=== PATIENT | male | born 1960 | race Hispanic/Latino ===

== ENCOUNTER 2019-02-11 20:36 | Emergency (ER) | payer MEDICAID ==
[2019-02-11 20:44] VITALS: BP 132/100
--- NOTE | 2019-02-11 20:46 | Event Note ---
ED Screening Note Date of service: 02/11/19 Time: 20:43 ED Screening Note: This is a 58 y.o. M. that presents to the ER with an abscess on right shoulder blade x 1 week. Reports drainage and pain. This initial assessment/diagnostic orders/clinical plan/treatment(s) is/are subject to change based on patients health status, clinical progression and re- assessment by fellow clinical providers in the ED. Further treatment and workup at subsequent clinical providers discretion. Patient/guardian urged not to elope from the ED as their condition may be serious if not clinically assessed and managed. Initial orders include:
--- NOTE | 2019-02-11 23:02 | Emergency Department Report ---
ED Rash HPI - HPI Chief Complaint: Skin/Abscess/Foreign Body Stated Complaint: BOIL ON BACK Time Seen by Provider: 02/11/19 20:42 Duration: 5 Days Location: Other Suspected Cause: Other Rash Symptoms: No Itching, No Facial Swelling, No Tongue/Oral Swelling, No Breathing Difficulties, No Choking Sensation, No Wheezing/Dyspnea, No Peeling, No Blistering, No Fever, No Lightheaded, No Malaise, No Myalgias Severity: mild Other History: Patient is a 58-year-old male comes to the ER after having a mole cut off on his back: He states his hair cut them all off. Patient states that since that time the area has become red and has had drainage. He has no fever. He is nontoxic. Vital signs are stable. Blood pressure noted to be mildly elevated. Patient denies any medical history including hypertension. Past surgeries include bilateral hip replacements. ED Review of Systems ROS: Stated complaint: BOIL ON BACK Other details as noted in HPI Comment: All other systems reviewed and negative ED Past Medical Hx - Past Medical History Previous Medical History?: Yes Hx Hypertension: Yes - Surgical History Past Surgical History?: Yes Additional Surgical History: bilateral hip replacement - Family History Family history: no significant - Social History Smoking Status: Current Every Day Smoker - Medications Home Medications: Home Medications Medication Instructions Recorded Confirmed Last Taken Type cephALEXin [Keflex] 500 mg PO Q12HR #20 cap 02/11/19 Unknown Rx Rash Exam - Exam General: Vital signs noted. No distress. Alert and acting appropriately. HEENT: No Periorbital Edema, No Conjuctival Injection Lungs: Yes Good Air Exchange, No Wheezes Heart: No Regular, No Murmur Skin: Yes Other, No Urticarial Rash Other: Positive: Abdomen Normal, Neurologic Normal, Musculoskeletal Normal ED Course Vital Signs 02/11/19 20:43 Temperature 97.5 F L Pulse Rate 78 Respiratory 18 Rate Blood Pressure 132/100 O2 Sat by Pulse 98 Oximetry ED Medical Decision Making - Medical Decision Making SITE OF MOLE THAT WAS REMOVED - BY PTS "HAIR" IS NOW RED AND INFLAMED WITH DRAINAGE. NO ABSCESS NO INDURATION NO FEVER DC HOME WITH DC PLAN OF CARE INCLUDING DERM FOLLOW UP PT EDUCATED ON NEED TO HAVE AREA BIOPSIED Vital Signs 02/11/19 20:43 Temperature 97.5 F L Pulse Rate 78 Respiratory 18 Rate Blood Pressure 132/100 O2 Sat by Pulse 98 Oximetry - Differential Diagnosis CELLULITIS; ABSCESS Critical care attestation.: If time is entered above; I have spent that time in minutes in the direct care of this critically ill patient, excluding procedure time. ED Disposition Clinical Impression: Skin infection, Atypical nevi Disposition: DC-01 TO HOME OR SELFCARE Is pt being admited?: No Does the pt Need Aspirin: No Condition: Stable Prescriptions: cephALEXin [Keflex] 500 mg PO Q12HR #20 cap Referrals: LALY PRO MD [Referring] - 3-5 Days Time of Disposition: 23:02
== END 2019-02-11 23:53 | disposition home or self-care (01) ==
LOC: ED 20:36
DX: L08.9 Local infection of the skin and subcutaneous tissue, unspecified (principal); D22.5 Melanocytic nevi of trunk; I10 Essential (primary) hypertension; F17.200 Nicotine dependence, unspecified, uncomplicated; Z98.890 Other specified postprocedural states; Z96.643 Presence of artificial hip joint, bilateral; Z79.899 Other long term (current) drug therapy
CPT/HCPCS: 99282